=== PATIENT | female | born 1990 | race Caucasian/White ===

== ENCOUNTER 2024-11-05 12:36 | Emergency (ER) | payer OTHER, SELFPAY ==
[2024-11-05 12:37] VITALS: BMI 16.9
[2024-11-05 12:54] VITALS: BP 109/76
[2024-11-05 16:18] VITALS: BP 109/58
[2024-11-05 16:37] LABS: Urine Albumin Negative (Neg - Trace); Urine Bilirubin Negative (Negative); Urine Character Slightly Cloudy (Clear); Urine Color Yellow; Urine Glucose Negative (Negative); Urine Ketone Negative (Negative); Urine Leukocyte 3+ (Negative); Urine Nitrite Negative (Negative); Urine Occult Blood 1+ (Negative); Urine Specific Gravity 1.015 (<1.030); Urine Urobilinogen 1+ (Neg - 1+)
[2024-11-05 16:41] LABS: HCG, Urine Qualitative Screen Negative
[2024-11-05 16:55] LABS: Urine Amorphous Seen; Urine Mucus Few; Urine Squamous Cell 0-2 /LPF (Few)
[2024-11-05 16:56] LABS: Urine Bacteria Moderate (Negative); Urine White Cell 16-20 /HPF (0-5)
--- NOTE | 2024-11-05 17:10 | ED.GENMED ---
History of Present Illness
General
Chief Complaint: Female Enrolled Nurse/Gu symptoms
Source: patient and rouge presser ([id number])
Exam Limitations: none
Time Seen by Provider: 11/05/24 15:45
Nursing documentation reviewed up to this point in time: agreed with
History of Present Illness
History of Present Illness:
33 yo female with no past medical hx presents for greenish vaginal discharge, itching, burning vaginally past 2 days. Tried Vagistat last night with no relief.
She denies abdominal pain. Denies fever. Denies dysuria. Moving bowels regularly.
Past History
Past History
ED Past Medical History: None
ED Past Surgical History: None
Social History
Tobacco: Non-smoker
Alcohol: None
Personal:
Living: with family
Employment: Not employed
Review of Systems
Review of Systems
Allergies reviewed?: Yes
All Other Systems: ROS reviewed and negative except as documented in HPI and ROS
Constitutional: Denies fever
Respiratory: Denies trouble breathing
Cardiac: Denies chest pain
ABD/GI: Denies abdominal pain, nausea, vomiting, diarrhea, constipated or anorexia
: Reports discharge; Denies dysuria, frequency, flank pain or bleeding
Musculoskeletal: Reports no symptoms
Skin: Reports no symptoms
Neurological: Reports no symptoms
Phy Exam
Physical Exam
Physical Exam:
GENERAL: No acute distress. A&Ox3.
CONSTITUTIONAL: Afebrile.
EYES: clear, conjunctivae normal
ENMT: moist mucus membranes
RESPIRATORY: Regular respirations, nonlabored, lungs clear.
CARDIOVASCULAR: Regular rate and rhythm, no murmurs, no rubs.
GI: Soft, nontender, normal BS
MUSCULOSKELETAL: Moves with ease. Well perfused.
SKIN: Warm, dry, pink
PSYCH: Normal mood and affect. Well kept, interactive and appropriate
NEUROLOGIC: Awake, alert and oriented. No focal neurological deficits
Genitourinary Exam Female
Exam Female: CMT, lesions (superficial ulceration 5 mm 8 o'cloc on cervix), no adnexal tenderness, no bleeding, no mass and vaginal discharge
Vaginal Discharge: purulent
Visual exam of cervix: erythemia
Uterus: normal size
Course
Orders/Labs/Results
Orders:
Orders
11/05/24 16:11
HCG, Urine Qualitative Screen Urgent
Date Specimen was Collected: 11/05/24
Time Specimen was Collected: 16:04
Comment: ADD ON
Urinalysis Reflex To Culture Urgent
Specimen Description:
Date Specimen was Collected: 11/05/24
Time Specimen was Collected: 16:04
Urine Microscopic Reflex Cult Urgent
Urine Culture Urgent
KELVIN Source: U
Specimen Description:
Date Specimen was Collected: 11/05/24
Time Specimen was Collected: 16:04
11/05/24 16:23
Add On- LAB Urgent
Tests Added?: urine hcg qualitative
11/05/24 16:27
Toshia/Yeast Culture Urgent
KELVIN Source: Vagina
Specimen Description:
Date Specimen was Collected: 11/05/24
Time Specimen was Collected: 16:22
Chlamydia/GC by PCR Urgent
KELVIN Source: Vagina
Specimen Description:
Source:: VAGINA
Date Specimen was Collected: 11/05/24
Time Specimen was Collected: 16:19
Trichomonas - Wet Prep Urgent
KELVIN Source: Vagina
Specimen Description:
Date Specimen was Collected: 11/05/24
Time Specimen was Collected: 16:22
11/05/24 17:23
Azithromycin [Zithromax] 1,000 mg PO NOW STA
Ceftriaxone Sodium [Rocephin] 500 mg IM NOW STA
Abnormal Lab Results
11/05/24
16:11
Ur Occult Blood Reflex 1+ A
(Negative)
Leukocyte Esterase Rfl 3+ A
(Negative)
Urine RBC 3-6 A /HPF
(0-2)
Urine WBC (Reflex) 16-20 A /HPF
(0-5)
Urine Bacteria (Reflex) Moderate A
(Negative)
Vital Signs
Initial and Last Documented VS:
Initial Vital Signs
Temp Pulse Resp BP Pulse Ox
97.5 F 112 22 109/76 98
11/05/24 12:54 11/05/24 12:54 11/05/24 12:54 11/05/24 12:54 11/05/24 12:54
Last Documented Vital Signs
Temp Pulse Resp BP Pulse Ox
98.1 F 74 18 107/63 99
11/05/24 18:42 11/05/24 18:42 11/05/24 18:42 11/05/24 18:42 11/05/24 18:42
MDM/Problems Addressed
Differential Diagnosis Includes:
STI, yeast infection, bacterial vaginosis
MDM/Problems Addressed:
33 yo female with no past medical hx presents for greenish vaginal discharge, itching, burning vaginally past 2 days. Tried Vagistat last night with no relief.
She denies abdominal pain. Denies fever. Denies dysuria. Moving bowels regularly.
Afebrile, NAD
5:15 p.m.
U/A: 3+ Leukocyte esterase, 16-20 WBC, Moderate bacteria , few RBC, neg Nitrites
6:30 PM:
Wet prep is negative for trichomonas
GC/chlamydia vaginal cultures are negative
Yeast culture pending
Will treat with Flagyl for poss BV
Patient requested I talk to her who is Ecuadorean speaking. I spoke with him on the phone, explained the Flagyl regimen and why I am giving it, I told him [facility] office on Friday morning and make next available appointment in the next 2 weeks. Rx
for Flagyl sent to her pharmacy
All questions answered.
ED Attending Note
-
Portions of this chart may have been created with voice recognition software.� Occasional wrong word or��sound alike� substitutions may have occurred due to the inherent limitations of voice recognition software.
Discharge Plan
Departure
Patient Disposition: Home (Routine Discharge)
Date of Disposition: 11/05/24
Time of Disposition: 18:46
Referrals:
UNKNOWN - PT DOES,NOT KNOW [Family Provider]
Interventions
Interventions:
*Risk Screen - Suicide Last Done: 11/05/24 12:54
*General Assessment Last Done: 11/05/24 12:54
*Neglect/Abuse Screening Last Done: 11/05/24 12:54
ED-Female Genitourinary Assessment Last Done: 11/05/24 18:39
Discharge Date and Time
Print Language: FIJIAN
[2024-11-05] MEDS: ROCEPHIN 500 MG IM (18:25)
[2024-11-05] MEDS: ZITHROMAX 1000 MG PO (18:26)
[2024-11-05 18:42] VITALS: BP 107/63
[2024-11-05] MEDS: FLAGYL 500 MG PO (19:01)
== END 2024-11-05 19:18 | disposition home or self-care (01) ==
LOC: EMR 12:36
PROVIDERS: Registered Nurse; EMERGENCY PHYSICIAN Emergency Medicine
DX: N89.8 Other specified noninflammatory disorders of vagina (principal)
CPT/HCPCS: 96372; 99284; 81003; 81015; 81025; 87086; 87102; 87210; 87491; 87591

== ENCOUNTER 2025-01-03 22:12 | Emergency (ER) | payer OTHER, SELFPAY ==
[2025-01-03 22:38] VITALS: BP 98/70
[2025-01-03 23:08] LABS: Hematocrit 39.4 % (37.0-47.0); Hemoglobin 13.2 g/dL (12.0-16.0); Mean Corp Hgb Conc. 33.5 g/dL (33.0-37.0); Mean Corpuscular Volume 85.7 fL (81.0-99.0); Nucleated Red Blood Cells % 0 %; Platelet Count 237 10^3/uL (130-400); Red Cell Dist. Width 13.5 % (11.5-14.5)
[2025-01-03 23:09] LABS: Urine Character Clear (Clear)
[2025-01-03 23:19] LABS: HCG, Serum Qualitative Screen Negative
[2025-01-03 23:20] LABS: Urine Red Blood Cell >100 /HPF (0-2); Urine Urothelial Cell 0-2 /LPF (FEW)
[2025-01-03 23:29] LABS: ALT (SGPT) 16 U/L (0-35); AST (SGOT) 26 U/L (14-36); Albumin 4.9 g/dl (3.5-5.0); Alkaline Phosphatase 50 U/L (38-126); Blood Urea Nitrogen 11 mg/dl (7-17); Calcium 9.6 mg/dl (8.4-10.2); Carbon Dioxide 26 mmol/L (22-30); Chloride 105 mmol/L (98-107); Glucose 102 mg/dl (70-99); Potassium 4.2 mmol/L (3.5-5.1); Sodium 140 mmol/L (135-145); Total Protein 8.5 g/dl (6.3-8.2); eGFR > 60.00
--- NOTE | 2025-01-04 01:43 | ED.GENMED ---
History of Present Illness
General
Chief Complaint: Female Manager Student Services/Gu symptoms
Source: patient and previous hospital records (ED visit 2 months ago for similar complaints.)
Exam Limitations: none
Time Seen by Provider: 01/04/25 01:02
Nursing documentation reviewed up to this point in time: agreed with
History of Present Illness
History of Present Illness:
The patient is a 34-year-old female presenting with complaints of vaginal itching and burning. She was seen two months ago with similar symptoms and was prescribed 1 week course of metronidazole for possible BV, which she did not complete initially.
The patient reports she finished a 5-day course of metronidazole today for recurrent vaginal itching, burning, pain. Very similar burning and pain she experienced 2 months ago. After a period of symptom remission, the complaints recurred. She is
experiencing these symptoms continuously, rather than correlated with urination. The patient also reports having her menstrual period currently, normally and on time. She confirms being sexually active with her only.
The patient denies the use of harsh soaps, detergents, or douching and states she has not been using any new products recently. No signs of yeast or bacterial infections were evident during the last visit in October, and all cultures, including vaginal
and urine cultures, were negative. The patient is concerned about possible herpetic ulcers.
She reports previous diagnosis of genital herpes and was prescribed acyclovir preventative 1-1/2 years ago prior to the of her daughter.
Patient states the vaginal itching and burning began after a stressful event and similarly 2 months ago.
Past History
Past History
ED Past Medical History: Other (Genital herpes)
ED Past Surgical History: None
Social History
Tobacco: Non-smoker
Alcohol: None
Personal:
Living: with family
Employment: Not employed
Family History
Family History: Other (Noncontributory)
Phy Exam
Physical Exam
Physical Exam:
General: 34-year-old woman appears her stated age. Bright and alert, pleasant, appears in no acute distress. Speaks P[place], language line city engineer utilized. Soft,
Skin: Warm, dry.
Head: Normocephalic, atraumatic.
Neck: Supple, trachea midline.
Eye Ears, nose, mouth and throat: Oral mucosa moist.
Cardiovascular: Normal peripheral perfusion, No edema.
Respiratory: Respirations are non-labored.
Gastrointestinal: Abdomen nondistended. Soft, nontender.
: On examination, there is some minor irritant-related erythema noted labia minora and medial aspect of the labia majora inferiorly, but no definitive evidence of ulcers or signs typical of a herpes infection. The patient is currently
menstruating but appears otherwise unremarkable. Cervix is parous. No cervical motion tenderness. Uterus is small, mobile, nontender. No adnexal masses nor tenderness.
Back: Normal range of motion, normal alignment.
Musculoskeletal: Normal range of motion, normal strength.
Neurological: Alert and oriented to person, place, time, and situation, No focal neurological deficit observed.
Psychiatric: Cooperative, appropriate mood & affect.
Course
Orders/Labs/Results
Orders:
Orders
01/03/25 22:48
Test Result ONCE
01/03/25 22:56
Complete Blood Count/With Diff Urgent
Comprehensive Metabolic Panel Urgent
HCG, Serum Qualitative Screen Urgent
Urinalysis Reflex To Culture Urgent
Date Specimen was Collected: 01/03/25
Time Specimen was Collected: 22:48
Urine Microscopic Reflex Cult Urgent
Urine Culture Urgent
KELVIN Source: U
Specimen Description:
Date Specimen was Collected: 01/03/25
Time Specimen was Collected: 22:48
01/04/25 01:40
Add On- LAB Urgent
Tests Added?: Herpes simplex virus IgG, IgM
01/04/25 01:41
Valacyclovir HCl [Valtrex] 500 mg PO NOW STA
Abnormal Lab Results
01/03/25
22:56
Creatinine 1.1 H mg/dL
(0.6-1.0)
Glucose 102 H mg/dl
(70-99)
Total Protein 8.5 H g/dl
(6.3-8.2)
Ur Occult Blood Reflex 4+ A
(Negative)
Leukocyte Esterase Rfl 1+ A
(Negative)
Urine RBC >100 A /HPF
(0-2)
Urine WBC (Reflex) 11-15 A /HPF
(0-5)
Urine Bacteria (Reflex) Moderate A
(Negative)
Urine Albumin (Reflex) 1+ A
(Neg - Trace)
01/03/25 22:56
01/03/25 22:56
Vital Signs
Initial and Last Documented VS:
Initial Vital Signs
Temp Pulse Resp BP Pulse Ox
98.6 F 88 20 98/70 99
01/03/25 22:38 01/03/25 22:38 01/03/25 22:38 01/03/25 22:38 01/03/25 22:38
Last Documented Vital Signs
Temp Pulse Resp BP Pulse Ox
98.6 F 88 20 98/70 99
01/03/25 22:38 01/03/25 22:38 01/03/25 22:38 01/03/25 22:38 01/03/25 22:38
MDM/Problems Addressed
Differential Diagnosis Includes:
The Differential Diagnosis includes, in no particular order and is not limited to:
- Herpes Simplex Virus infection
- Candidiasis
- Bacterial vaginosis
- Contact dermatitis
- Lichen simplex chronicus
- Vulvar Lichen sclerosus
- Trichomoniasis
- Allergic reaction
- Vulvodynia
- Psoriasis of the vulva
MDM/Problems Addressed:
Acute problems:
- Vaginal itching and burning
Chronic conditions affecting care:
Reported history of genital herpes at least 1 time in the past.
Acute Exacerbation and/or Progression of Chronic Illness:
Concern for recurrent genital herpes.
Thus far labs are unremarkable.
Urinalysis shows greater than 100 RBCs likely related to menses. 11-15 WBCs and moderate bacteria but nitrite negative. Similar bacteriuria noted in October with urine culture that showed no growth.
Patient has had no UTI symptoms.
Will plan for vaginal/genital culture, will repeat GC chlamydia culture for completeness sake and will add herpes simplex IgG/IgM to blood in the lab.
Will initiate a 3-day course of Valtrex for presumed genital herpes outbreak however with symptoms beginning last week, likely will need to run its course.
Patient will again be referred to [facility] for follow-up. Encouraged to schedule an appointment, follow-up with [facility].
PLAN:
- Send a vaginal culture to evaluate for bacterial or yeast infection.
- Perform blood work to test for herpes simplex virus antibodies.
- Commence treatment with Valtrex (Valacyclovir) as a precautionary antiviral therapy.
- Prescribe Bacitracin for local irritation and instruct the patient to avoid harsh soaps or detergents.
- Provide the patient with the name of a used equipment sales representative for follow-up. Recommend consultation with a used equipment sales representative for ongoing management and any potential suppressive therapy such as daily Valtrex in case of recurrent herpes outbreaks.
*Pulse Oximetry
SaO2: 99
Oxygen Mode of Delivery: Room air
Patient hypoxic: no
*Critical Care Note
Total Time (30-74mins, 75-104mins- exclusive of procedures): Not Applicable
ED Attending Note
-
Portions of this chart may have been created with voice recognition software.� Occasional wrong word or��sound alike� substitutions may have occurred due to the inherent limitations of voice recognition software.
Discharge Plan
Departure
Patient Disposition: Home (Routine Discharge)
Date of Disposition: 01/04/25
Time of Disposition: 01:54
Patient with high blood pressure during this ER visit?: No
Discharge Problem:
Vaginitis, concern for genital herpes
Instructions: Genital herpes
Prescriptions:
New
valacyclovir [Valtrex] 500 mg tablet
500 mg PO BID Qty: 6 0RF
No Action
metronidazole 500 mg tablet
500 mg PO BID 7 Days Qty: 13 0RF
Referrals:
Yanni Whitaker MD [Active, Gynecology] - Call in 1-3 days for appt
Jessica Vail MD [Family Provider, Family Practice]
Interventions
Interventions:
*Risk Screen - Suicide Last Done: 01/03/25 22:38
*General Assessment Last Done: 01/03/25 22:38
*Neglect/Abuse Screening Last Done: 01/03/25 22:38
*ED- Fall Risk Assessment Last Done: 01/03/25 22:38
*ED COVID-19 Vaccine History Last Done: 01/03/25 22:38
ED-Female Genitourinary Assessment Last Done: 01/03/25 23:59
Discharge Date and Time
Print Language: PALAUAN
[2025-01-04] MEDS: VALTREX 500 MG PO (01:55)
[2025-01-04 02:04] VITALS: BP 101/65
[2025-01-06 15:42] LABS: HSV 1/2 Combined Screen, IgG >22.40 IV (<=0.89)
== END 2025-01-04 02:57 | disposition home or self-care (01) ==
LOC: EMR 22:12
PROVIDERS: EMERGENCY PHYSICIAN Emergency Medicine; FAMILY PHYSICIAN Family Medicine
DX: N76.0 Acute vaginitis (principal)
CPT/HCPCS: 99283; 80053; 81003; 81015; 84703; 85025; 86694; 87070; 87077; 87086; 87147; 87491; 87591